=== PATIENT | male | born 1965 | race Caucasian/White ===

== ENCOUNTER 2020-12-20 09:03 | Inpatient (IN) | payer SELFPAY ==
[~2020-12-20] VITALS: Ht 172.7 cm; Wt 99.3 kg
--- NOTE | 2020-12-20 09:20 | ED.ADGEN ---
Past Medical History Past Medical History: No Pertinent History, CHF Past Surgical History: Other Additional Past Surgical Histo: left wrist surgery Smoking Status: Current Every Day Smoker Alcohol Use: None Drug Use: None General Adult EDM: Chief Complaint: CHEST PAIN-CARDIAC NATURE HPI: HPI: Patient is a 55-year-old male who arrives ambulatory to the emergency department complaining of progressive shortness of air over the past week. Patient reports he was diagnosed with congestive heart failure in September of this year at [facility]. Patient states since that time he is dealt with intermittent difficulty breathing. Patient states over the past week however he is noticed that when he sleeps he wakes up gasping for air as well as experiencing diaphoresis. Patient also states that he has heaviness in his chest all the time. Despite this he denies any history of fever. He further denies any coughing when he is awake and states he does not really have chest pain. He further denies any known sick contacts and states he is not been vaccinated against the coronavirus. He is awake, alert and nontoxic-appearing. Review of Systems: Review of Systems: Constitutional: Denies fever or chills. [] Eyes: Denies change in visual acuity. [] HENT: Denies nasal congestion or sore throat. [] Respiratory: Reports cough or shortness of breath. [] Cardiovascular: Reports chest heaviness and shortness of air. Denies chest pa in or edema. [] GI: Denies abdominal pain, nausea, vomiting, bloody stools or diarrhea. [] : Denies dysuria. [] Musculoskeletal: Denies back pain or joint pain. [] Integument: Denies rash. [] Neurologic: Denies headache, focal weakness or sensory changes. [] Endocrine: Denies polyuria or polydipsia. [] Lymphatic: Denies swollen glands. [] Psychiatric: Denies depression or anxiety. [] Current Medications: Current Medications Medications (Trade) Dose Ordered Sig/Parris Start Time Stop Time Status Last Admin Dose Admin Acetaminophen (Tylenol) 650 mg PRN Q4HRS PRN 12/20/20 11:15 12/21/20 11:14 Ondansetron HCl (Zofran) 4 mg PRN Q8HRS PRN 12/20/20 11:15 12/21/20 11:14 Allergies: Allergies: Allergies Coded Allergies Type Severity Reaction Last Updated Verified No Known Drug Allergies 11/11/14 No Physical Exam: PE: Constitutional: Well developed, well nourished, no acute distress, non-toxic appearance. [] HENT: Normocephalic, atraumatic, bilateral external ears normal, oropharynx mo ist, no oral exudates, nose normal. [] Eyes: PERRLA, EOMI, conjunctiva normal, no discharge. [] Neck: Normal range of motion, no tenderness, supple, no stridor. [] Cardiovascular: Tachycardia. no murmur [] Lungs & Thorax: Diminished breath sounds bilaterally. [] Abdomen: Bowel sounds normal, soft, no tenderness, no masses, no pulsatile masses. [] Skin: Warm, dry, no erythema, no rash. [] Back: No tenderness, no CVA tenderness. [] Extremities: Trace edema of the lower extremities. No tenderness, no cyanosis, no clubbing, ROM intact. [] Neurologic: Alert and oriented X 3, normal motor function, normal sensory function, no focal deficits noted. [] Psychologic: Affect normal, judgement normal, mood normal. [] Current Patient Data: Labs: Laboratory Tests Test 12/20/20 09:34 12/20/20 10:20 SARS-CoV-2 RNA (ISABEL) Negative (Negative) White Blood Count 12.3 x10^3/uL (4.0-11.0) H Red Blood Count 5.39 x10^6/uL (4.30-5.70) Hemoglobin 14.8 g/dL (13.0-17.5) Hematocrit 45.0 % (39.0-53.0) Mean Corpuscular Volume 83 fL (79-100) Mean Corpuscular Hemoglobin 28 pg (25-35) Mean Corpuscular Hemoglobin Concent 33 g/dL (31-37) Red Cell Distribution Width 15.9 % (11.5-14.5) H Platelet Count 253 x10^3/uL (140-400) Neutrophils (%) (Auto) 75 % (31-73) H Lymphocytes (%) (Auto) 14 % (24-48) L Monocytes (%) (Auto) 9 % (0-9) Eosinophils (%) (Auto) 2 % (0-3) Basophils (%) (Auto) 1 % (0-3) Neutrophils # (Auto) 9.2 x10^3/uL (1.8-7.7) H Lymphocytes # (Auto) 1.7 x10^3/uL (1.0-4.8) Monocytes # (Auto) 1.1 x10^3/uL (0.0-1.1) Eosinophils # (Auto) 0.2 x10^3/uL (0.0-0.7) Basophils # (Auto) 0.1 x10^3/uL (0.0-0.2) Sodium Level 140 mmol/L (136-145) Potassium Level 4.6 mmol/L (3.5-5.1) Chloride Level 105 mmol/L (98-107) Carbon Dioxide Level 30 mmol/L (21-32) Anion Gap 5 (6-14) L Blood Urea Nitrogen 18 mg/dL (8-26) Creatinine 1.1 mg/dL (0.7-1.3) Estimated GFR (Cockcroft-Gault) 69.0 BUN/Creatinine Ratio 16 (6-20) Glucose Level 119 mg/dL (70-99) H Calcium Level 8.8 mg/dL (8.5-10.1) Total Bilirubin 0.8 mg/dL (0.2-1.0) Aspartate Amino Transferase (AST) 27 U/L (15-37) Alanine Aminotransferase (ALT) 44 U/L (16-63) Alkaline Phosphatase 96 U/L (46-116) Troponin I Quantitative 0.098 ng/mL (0.000-0.055) PM-Jra-P-Type Natriuretic Peptide 5833 pg/mL (0-124) H Total Protein 7.6 g/dL (6.4-8.2) Albumin 3.1 g/dL (3.4-5.0) L Albumin/Globulin Ratio 0.7 (1.0-1.7) L Laboratory Tests 12/20/20 10:20 Laboratory Tests 12/20/20 10:20 Vital Signs: Vital Signs Date Time Temp Pulse Resp B/P (MAP) Pulse Ox O2 Delivery O2 Flow Rate FiO2 12/20/20 09:09 97.8 104 24 173/122 (120) 98 Room Air 97.8 EKG: EKG: [] EKG was obtained at 9:33 AM and revealed a sinus tachycardia ventricular 106 bpm. There is left axis deviation present as well as a left anterior fascicular block. There is morphology consistent with what appears to be left ventricular hypertrophy as well. There are no acute ST/T wave changes to denote ischemia. Heart Score: C/O Chest Pain: Yes HEART Score for Chest Pain: HEART Score for Chest Pain Response (Comments) Value History Moderately Suspicious 1 Age >45 - < 65 1 Risk Factors 1 or 2 Risk Factors 1 Total 3 Risk Factors: Risk Factors: DM, Current or recent (<one month) smoker, HTN, HLP, family history of CAD, obesity. Risk Scores: Score 0 - 3: 2.5% MACE over next 6 weeks - Discharge Home Score 4 - 6: 20.3% MACE over next 6 weeks - Admit for Clinical Observation Score 7 - 10: 72.7% MACE over next 6 weeks - Early Invasive Strategies Radiology/Procedures: Radiology/Procedures: [] Impression: [facility] [address] [place], [place] [id number] IMAGING REPORT Signed PATIENT: ROOSEVELT BARBER ACCOUNT: [id number] : 1965 LOCATION: ER AGE: 55 SEX: M EXAM STATUS: REG ER ORD. PHYSICIAN: MULU MORELOS DO REASON: Short of air PROCEDURE: PORTABLE CHEST 1V XR CHEST 1V INDICATION: Short of air / Spl. Instructions: / History: . COMPARISON STUDY: None. FINDINGS: Lungs: Normal lung volume. Bilateral perihilar opacities. Indistinct central vasculature. Pleura: No pleural effusion or pneumothorax. Heart and Mediastinum: Cardiomegaly. The great vessels of the thorax are normal. IMPRESSION: Bilateral perihilar opacities, likely interstitial edema or infection. Electronically signed by: Marcia Elizabeth MD (12/20/2020 9:59 AM) [id number] DICTATED and SIGNED BY: MARCIA ELIZABETH MD DATE: 12/20/20 [id number] Course & Med Decision Making: Course & Med Decision Making Pertinent Labs and Imaging studies reviewed. (See chart for details) [] Dragon Disclaimer: Dragon Disclaimer: This electronic medical record was generated, in whole or in part, using a voice recognition dictation system. Departure Departure Impression: Primary Impression: Congestive heart failure Additional Impressions: Elevated troponin Methamphetamine use Abscess of left forearm Person under investigation for COVID-19 Disposition: ADMITTED INPATIENT Admitting Physician: JOSE Condition: STABLE Referrals: NO PCP (PCP) Problem Qualifiers MULU MORELOS DO Dec 20, 2020 09:20
--- NOTE | 2020-12-20 10:02 | RAD ---
XR CHEST 1V INDICATION: Short of air / Spl. Instructions: / History: . COMPARISON STUDY: None. FINDINGS: Lungs: Normal lung volume. Bilateral perihilar opacities. Indistinct central vasculature. Pleura: No pleural effusion or pneumothorax. Heart and Mediastinum: Cardiomegaly. The great vessels of the thorax are normal. IMPRESSION: Bilateral perihilar opacities, likely interstitial edema or infection. Electronically signed by: Isreal Elizabeth MD (12/20/2020 9:59 AM) [id number]
[2020-12-20 10:27] LABS: BASO # 0.1 x10^3/uL (0.0-0.2); BASO % 1 % (0-3); EOS # 0.2 x10^3/uL (0.0-0.7); EOS % 2 % (0-3); HEMOGLOBIN 14.8 g/dL (13.0-17.5); LYMPH # 1.7 x10^3/uL (1.0-4.8); LYMPH % 14 % (24-48); MEAN CORPUSCULAR HEMOGLOBIN 28 pg (25-35); MEAN CORPUSCULAR HGB CONC 33 g/dL (31-37); MEAN CORPUSCULAR VOLUME 83 fL (79-100); MONO # 1.1 x10^3/uL (0.0-1.1); MONO % 9 % (0-9); NEUT # 9.2 x10^3/uL (1.8-7.7); NEUT % 75 % (31-73); PLATELET COUNT 253 x10^3/uL (140-400); RED BLOOD COUNT 5.39 x10^6/uL (4.30-5.70); RED CELL DISTRIBUTION WIDTH 15.9 % (11.5-14.5); WHITE BLOOD COUNT 12.3 x10^3/uL (4.0-11.0)
[2020-12-20 10:44] LABS: CALCIUM 8.8 mg/dL (8.5-10.1); CREATININE 1.1 mg/dL (0.7-1.3); POTASSIUM 4.6 mmol/L (3.5-5.1)
[2020-12-20 10:48] LABS: ALBUMIN 3.1 g/dL (3.4-5.0); ALBUMIN/GLOBULIN RATIO 0.7 (1.0-1.7); TOTAL BILIRUBIN 0.8 mg/dL (0.2-1.0); TOTAL PROTEIN 7.6 g/dL (6.4-8.2)
[2020-12-20] MEDS ORDERED: ONDANSETRON PF 4 MG/2 ML VIAL. IV PRN (11:15)
[2020-12-20] MEDS ORDERED: ACETAMINOPHEN 325 MG TABLET. PO PRN (11:15)
[2020-12-20] MEDS: MORPHINE SULFATE 4 MG/ML INJ. IVP PRN ×3 (11:59→23:28)
[2020-12-20] MEDS ORDERED: LIDOCAINE 1% Multi-Dose 20 ML VIAL. INJ ONE (12:00)
[2020-12-20] MEDS ORDERED: VANCOMYCIN 1.75 GM in IV NORMAL SALINE 500ML BAG 500 ML IV ONE (13:00)
[2020-12-20] MEDS ORDERED: PIPERACILLIN/TAZOBACTAM 3.375 GM in IV NORMAL SALINE 50ML 50 ML IV ONE (13:00)
[2020-12-20] MEDS ORDERED: PIP/TAZO PER PHARMACY MC PRN (13:00)
--- NOTE | 2020-12-20 13:10 | HP ---
ADMIT DATE: 12/20/2020 CHIEF COMPLAINT: Left arm abscess, methamphetamine abuse, volume overload, shortness of breath and swelling. HISTORY OF PRESENT ILLNESS: The patient is a pleasant 55-year-old male who continues to inject methamphetamine. He has a large abscess on his left arm. He also was volume overloaded with acute on chronic systolic and diastolic heart failure. His BNP level is 6000. His troponin is elevated at 0.098. He also has a white count of 12. Basically, I discussed the case with ER physician. We are going to admit the patient and consult Cardiology and get him diuresed and give him some IV antibiotics and get the left arm abscess drained. PAST MEDICAL HISTORY: Continued methamphetamine abuse, CHF, noncompliance, left wrist surgery, tobacco abuse. ALLERGIES: None. FAMILY HISTORY: Diabetes. SOCIAL HISTORY: He does not drink. He smokes and takes drugs. He injects himself with methamphetamine in his left arm. MEDICATIONS: Reviewed, please refer to the MRAD. REVIEW OF SYSTEMS: GENERAL: No history of weight change, weakness or fevers. SKIN: No bruising, hair changes or rashes. EYES: No blurred, double or loss of vision. NOSE AND THROAT: No history of nosebleeds, hoarseness or sore throat. HEART: No history of palpitations, chest pain or shortness of breath on exertion. LUNGS: He complains of shortness of breath. GASTROINTESTINAL: Denies changes in appetite, nausea, vomiting, diarrhea or constipation. GENITOURINARY: No history of frequency, urgency, hesitancy or nocturia. NEUROLOGIC: Denies history of numbness, tingling, tremor or weakness. PSYCHIATRIC: No history of panic, anxiety or depression. ENDOCRINE: No history of heat or cold intolerance, polyuria or polydipsia. EXTREMITIES: He complains of left arm abscess. LABORATORY DATA: Hematology is normal. White count is 12. Chest x-ray shows vascular congestion. BNP level 6000. ASSESSMENT AND PLAN: Acute on chronic systolic and diastolic heart failure, left arm abscess, methamphetamine abuse, leukocytosis, noncompliance and elevated troponin. The patient will be admitted. We will start IV Lasix, start IV antibiotics. The ER physician is going to try to drain the abscess. Home meds, deep venous thrombosis prophylaxis. Full code. 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 Cardiac monitoring, serial enzymes, serial EKGs. CRITICAL CARE TIME: [address]: Jose TID: [id number]
--- NOTE | 2020-12-20 13:52 | PDOC2 ---
CARDIAC CONSULT DATE OF CONSULT Date of Consult DATE: 12/20/20 TIME: 13:13 REASON FOR CONSULT Reason for Consult: heart failure, elevated troponin REFERRING PHYSICIAN Referring Physician: Jian SOURCE Source: Chart review, Patient HISTORY OF PRESENT ILLNESS HISTORY OF PRESENT ILLNESS This is a 55 yo male admitted for complains of shortness of breath. He has been having chest heaviness but no palpitations nausea or vomiting. No fever or chills. His SOA has been ongoing for about 2 weeks. He was at [facility] in September and diagnosed with NICM, CHF and was positive for meth at that time. He was taking his medications until he ran out early November. He said he just could not afford it. He smokes tobacco/cigar and used methamphetamines a week ago. No prior exposure to covid-19 and has not had the vaccine. He lives alone in an apartment. No leg swelling. PAST MEDICAL HISTORY Cardiovascular: CHF, HTN, Hyperlipidemia, Other (NICM deemed toxic related with associated use meth; possible angioedema due to ACEi) Pulmonary: COPD CENTRAL NERVOUS SYSTEM: Other (No pertinent history) GI: No pertinent hx Heme/Onc: No pertinent hx Hepatobiliary: Cholelithiasis Musculoskeletal: Osteoarthritis, Other (traumatic right knee injury with hemarthroses with aspiration) Rheumatologic: Gout Infectious disease: No pertinent hx ENT: No pertinent hx Renal/: Acute renal failure Endocrine: No pertinent hx Dermatology: No pertinent hx PAST SURGICAL HISTORY Past Surgical History: Arthroscopy (right knee ACL repair), Cholecystectomy, Other (hand surgery) SOCIAL HISTORY Smoke: <1 pack per day ALCOHOL: occassional Drugs: Crystal meth Lives: Alone CURRENT MEDICATIONS CURRENT MEDICATIONS Current Medications Medications (Trade) Dose Ordered Sig/Parris Route PRN Reason Start Time Stop Time Status Last Admin Dose Admin Ondansetron HCl (Zofran) 4 mg PRN Q8HRS PRN IV NAUSEA/VOMITING 12/20/20 11:15 12/21/20 11:14 12/20/20 11:59 Acetaminophen (Tylenol) 650 mg PRN Q4HRS PRN PO FEVER > 100.3'F 12/20/20 11:15 12/21/20 11:14 12/20/20 12:00 Morphine Sulfate (Morphine Sulfate) 4 mg PRN Q2HR PRN IVP PAIN 12/20/20 11:45 12/21/20 11:44 12/20/20 11:59 Lidocaine HCl (Lidocaine 1% 20ml Vial) 20 ml 1X ONCE INJ 12/20/20 12:00 12/20/20 12:01 DC 12/20/20 12:00 ALLERGIES ALLERGIES: Coded Allergies: No Known Drug Allergies (Unverified , 11/11/14) PHYSICAL EXAM General: Alert, Oriented X3, Cooperative, No acute distress HEENT: Atraumatic, Mucous membr. moist/pink Lungs: Other (diminished bases) Heart: Regular rate (SR), Normal S1, Normal S2, Other (S4; 2/6 systolic murmur to LLS border) Extremities: No cyanosis, No edema Skin: No rashes, Other (left arm boil- post I & D) Neuro: Normal speech, Sensation intact Psych/Mental Status: Mental status NL, Mood NL MUSCULOSKELETAL: Osteoarthritic changes both hands VITALS/I&O VITALS/I&O: Vital Signs Date Time Temp Pulse Resp B/P (MAP) Pulse Ox O2 Delivery O2 Flow Rate FiO2 12/20/20 11:57 104 192/111 (138) 96 Room Air 12/20/20 09:09 97.8 24 97.8 LABS Lab: Laboratory Tests Test 12/20/20 09:34 12/20/20 10:20 SARS-CoV-2 RNA (ISABEL) Negative (Negative) White Blood Count 12.3 x10^3/uL (4.0-11.0) H Red Blood Count 5.39 x10^6/uL (4.30-5.70) Hemoglobin 14.8 g/dL (13.0-17.5) Hematocrit 45.0 % (39.0-53.0) Mean Corpuscular Volume 83 fL (79-100) Mean Corpuscular Hemoglobin 28 pg (25-35) Mean Corpuscular Hemoglobin Concent 33 g/dL (31-37) Red Cell Distribution Width 15.9 % (11.5-14.5) H Platelet Count 253 x10^3/uL (140-400) Neutrophils (%) (Auto) 75 % (31-73) H Lymphocytes (%) (Auto) 14 % (24-48) L Monocytes (%) (Auto) 9 % (0-9) Eosinophils (%) (Auto) 2 % (0-3) Basophils (%) (Auto) 1 % (0-3) Neutrophils # (Auto) 9.2 x10^3/uL (1.8-7.7) H Lymphocytes # (Auto) 1.7 x10^3/uL (1.0-4.8) Monocytes # (Auto) 1.1 x10^3/uL (0.0-1.1) Eosinophils # (Auto) 0.2 x10^3/uL (0.0-0.7) Basophils # (Auto) 0.1 x10^3/uL (0.0-0.2) Sodium Level 140 mmol/L (136-145) Potassium Level 4.6 mmol/L (3.5-5.1) Chloride Level 105 mmol/L (98-107) Carbon Dioxide Level 30 mmol/L (21-32) Anion Gap 5 (6-14) L Blood Urea Nitrogen 18 mg/dL (8-26) Creatinine 1.1 mg/dL (0.7-1.3) Estimated GFR (Cockcroft-Gault) 69.0 BUN/Creatinine Ratio 16 (6-20) Glucose Level 119 mg/dL (70-99) H Calcium Level 8.8 mg/dL (8.5-10.1) Total Bilirubin 0.8 mg/dL (0.2-1.0) Aspartate Amino Transferase (AST) 27 U/L (15-37) Alanine Aminotransferase (ALT) 44 U/L (16-63) Alkaline Phosphatase 96 U/L (46-116) Troponin I Quantitative 0.098 ng/mL (0.000-0.055) HX-Oxp-Y-Type Natriuretic Peptide 5833 pg/mL (0-124) H Total Protein 7.6 g/dL (6.4-8.2) Albumin 3.1 g/dL (3.4-5.0) L Albumin/Globulin Ratio 0.7 (1.0-1.7) L Laboratory Tests 12/20/20 10:20 Laboratory Tests 12/20/20 10:20 ECHOCARDIOGRAM ECHOCARDIOGRAM Echocardiogram 09/29/2020: [facility] * LVEF=25%. * Mildly dilated left ventricle with severely impaired systolic function. LVIDD 5.39 cm, LVIDS 4.68 cm. No LVH. * No definite LV filling defect on the echo contrast images. * Mildly dilated right ventricle with reduced function. * Normal sized atria. * Non-specific mitral valve thickening with mild-moderate regurgitation. No stenosis. * No pericardial effusion. * Estimated pulmonary artery systolic pressure is 37 mmHg. STRESS TEST STRESS TEST SUMMARY/OPINION: [facility] 09/29/2020 This study is normal from a scintigraphic standpoint as there are no definite fixed or reversible perfusion abnormalities. The left ventricular cavity size is mildly dilated without transient ischemic dilatation. The gated portion of the study is notable for severe diffuse left ventricular hypokinesis. The calculated LVEF is 29%. There are no other high risk adverse prognostic features present. These findings would be compatible with a nonischemic myocardiopathic process. There are no prior studies available for direct comparison. In aggregate the current study is high risk in regards to predicted annual cardiovascular mortality rate. ASSESSMENT/PLAN ASSESSMENT/PLAN 1. Acute on chronic systolic CHF 2. HTN urgency 3. Mild troponin elevation: EKG SR with LAFB and LVH. No acute EKG changes. Demand mediated type 2 4. Obesity 5. Hx of methamphetamine use: last use of meth a week ago 6. NICM: suspect associated with substance abuse. prior EF at 25% 7. AECOPD with tobaccu use 8. PUI 9. Obesity Recommendations 1. Restart ASA/Statin. 2. Restart hydralazine/imdur, coreg and aldactone. Lasix therapy 3. UDS 4. Lifestyle modification 5. Discussed compliance MARIANO DIALLO ASSISTANT FOOD SERVICE DIRECTOR Dec 20, 2020 13:52
[2020-12-20 14:18] LABS: CHOLESTEROL/HDL RATIO 4.4
[2020-12-20] MEDS ORDERED: FUROSEMIDE 40 MG/4 ML VIAL. IVP ONE (14:30)
[2020-12-20 14:35] VITALS: BP 153/90
[2020-12-20] MEDS: VANCOMYCIN PER PHARMACY MC PRN (16:49)
--- NOTE | 2020-12-20 16:49 | NUR ---
Pharmacy Vancomycin Dosing Note S:Consulted to monitor and dose vancomycin started 12/20/20. O:ROOSEVELT BARBER is a 55 year old M with pneumonia. Height: 5 feet, 8 inches Weight: 104.9 kg Dosing Weight: Actual Other Antibiotics: ZOSYN 3.375G IV Q6HRS LABS: Last BUN: 18 Last Creatinine: 1.1 Creatinine Clearance: 89 mL/min Last WBC: 12.3 Last Procalcitonin: Tmax (past 24 hours): 98.6 Microbiology: N/A A: Patient requires vancomycin for pneumonia, goal trough 15-20 mcg/ml. His Scr is 1.1 with an est CrCl of 89 ml/min. Initiate the following: P: 1. Initiate Vancomycin 1750 mg IV x 1 dose, then 1500 mg IV q12h 2. Follow up Trough level on 12/22/20 at 0230 3. Pharmacy will continue to monitor, follow and adjust therapy as needed. JUAN PABLO GUTIERREZ [facility], 12/20/20 1040
[2020-12-20] MEDS: CARVEDILOL 3.125 MG TABLET. PO SCH (17:07)
[2020-12-20 18:18] LABS: BARBITURATES NEG (NEG); BENZODIAZEPINES NEG (NEG); CANNABINOIDS NEG (NEG); COCAINE NEG (NEG); METHADONE NEG (NEG); OPIATES POS (NEG); PHENCYCLIDINE NEG (NEG)
[2020-12-20 18:22] LABS: AMPHETAMINE/METHAMPHETAMINE POS (NEG)
[2020-12-20 19:00] VITALS: BP 162/95
[2020-12-20] MEDS: LACTOBACILLUS RHAMNOSUS GG 1 CAPSULE. PO SCH (19:50)
[2020-12-20] MEDS: PIPERACILLIN/TAZOBACTAM 3.375 GM in IV NORMAL SALINE 50ML 50 ML IV SCH (19:51)
[2020-12-20] MEDS: ATORVASTATIN CALCIUM 40 MG TABLET. PO SCH (19:51)
[2020-12-20 23:00] VITALS: BP 145/92
[2020-12-21] MEDS: VANCOMYCIN 1.5 GM in IV NORMAL SALINE 500ML BAG 500 ML IV SCH ×2 (02:23→14:50)
[2020-12-21] MEDS: MORPHINE SULFATE 4 MG/ML INJ. IVP PRN ×4 (02:46→21:06)
[2020-12-21 02:54] VITALS: BP 131/97
[2020-12-21] MEDS: PIPERACILLIN/TAZOBACTAM 3.375 GM in IV NORMAL SALINE 50ML 50 ML IV SCH ×3 (05:35→20:59)
[2020-12-21 07:00] VITALS: BP 149/102
[2020-12-21] MEDS: ASPIRIN ENTERIC COATED 81 MG TABLET.DR. PO SCH (08:50)
[2020-12-21] MEDS: ISOSORBIDE MONONITRATE ER 30 MG TAB.ER.24H PO SCH (08:50)
[2020-12-21] MEDS: CARVEDILOL 3.125 MG TABLET. PO SCH (08:50)
[2020-12-21] MEDS: SPIRONOLACTONE 25 MG TABLET PO SCH (08:52)
[2020-12-21] MEDS: LACTOBACILLUS RHAMNOSUS GG 1 CAPSULE. PO SCH ×2 (08:53→20:58)
--- NOTE | 2020-12-21 08:56 | PDOC ---
CARDIO Progress Notes Date and Time Date of Service 12/21/2020 Time of Evaluation 1010 Subjective Subjective: No Chest Pain, No Palpitations, Other (SOA better) Vitals Vitals Vital Signs Date Time Temp Pulse Resp B/P (MAP) Pulse Ox O2 Delivery O2 Flow Rate FiO2 12/21/20 07:00 97.6 102 20 149/102 (118) 97 Nasal Cannula 2.0 97.6 Weight Weight [ ] Input and Output Intake and Output Intake and Output 12/21/20 07:00 Intake Total 1100 ml Output Total 1100 ml Balance 0 ml Intake Oral 1100 ml Output Urine Total 1100 ml Laboratory Labs Laboratory Tests Test 12/20/20 09:34 12/20/20 10:20 12/20/20 14:30 12/20/20 17:50 SARS-CoV-2 RNA (ISABEL) Negative (Negative) White Blood Count 12.3 x10^3/uL (4.0-11.0) Red Blood Count 5.39 x10^6/uL (4.30-5.70) Hemoglobin 14.8 g/dL (13.0-17.5) Hematocrit 45.0 % (39.0-53.0) Mean Corpuscular Volume 83 fL (79-100) Mean Corpuscular Hemoglobin 28 pg (25-35) Mean Corpuscular Hemoglobin Concent 33 g/dL (31-37) Red Cell Distribution Width 15.9 % (11.5-14.5) Platelet Count 253 x10^3/uL (140-400) Neutrophils (%) (Auto) 75 % (31-73) Lymphocytes (%) (Auto) 14 % (24-48) Monocytes (%) (Auto) 9 % (0-9) Eosinophils (%) (Auto) 2 % (0-3) Basophils (%) (Auto) 1 % (0-3) Neutrophils # (Auto) 9.2 x10^3/uL (1.8-7.7) Lymphocytes # (Auto) 1.7 x10^3/uL (1.0-4.8) Monocytes # (Auto) 1.1 x10^3/uL (0.0-1.1) Eosinophils # (Auto) 0.2 x10^3/uL (0.0-0.7) Basophils # (Auto) 0.1 x10^3/uL (0.0-0.2) Sodium Level 140 mmol/L (136-145) Potassium Level 4.6 mmol/L (3.5-5.1) Chloride Level 105 mmol/L (98-107) Carbon Dioxide Level 30 mmol/L (21-32) Anion Gap 5 (6-14) Blood Urea Nitrogen 18 mg/dL (8-26) Creatinine 1.1 mg/dL (0.7-1.3) Estimated GFR (Cockcroft-Gault) 69.0 BUN/Creatinine Ratio 16 (6-20) Glucose Level 119 mg/dL (70-99) Calcium Level 8.8 mg/dL (8.5-10.1) Total Bilirubin 0.8 mg/dL (0.2-1.0) Aspartate Amino Transf (AST/SGOT) 27 U/L (15-37) Alanine Aminotransferase (ALT/SGPT) 44 U/L (16-63) Alkaline Phosphatase 96 U/L (46-116) Troponin I Quantitative 0.098 ng/mL (0.000-0.055) 0.099 ng/mL (0.000-0.055) BA-Nxw-W-Type Natriuretic Peptide 5833 pg/mL (0-124) Total Protein 7.6 g/dL (6.4-8.2) Albumin 3.1 g/dL (3.4-5.0) Albumin/Globulin Ratio 0.7 (1.0-1.7) Triglycerides Level 114 mg/dL (0-150) Cholesterol Level 158 mg/dL (0-200) LDL Cholesterol, Calculated 99 mg/dL (0-100) VLDL Cholesterol, Calculated 23 mg/dL (0-40) Non-HDL Cholesterol Calculated 122 mg/dL (0-129) HDL Cholesterol 36 mg/dL (40-60) Cholesterol/HDL Ratio 4.4 Thyroid Stimulating Hormone (TSH) 3.649 uIU/mL (0.358-3.74) Urine Opiates Screen Pos (NEG) Urine Methadone Screen Neg (NEG) Urine Barbiturates Neg (NEG) Urine Phencyclidine Screen Neg (NEG) Urine Amphetamine/Methamphetamine Pos (NEG) Urine Benzodiazepines Screen Neg (NEG) Urine Cocaine Screen Neg (NEG) Urine Cannabinoids Screen Neg (NEG) Urine Ethyl Alcohol Neg (NEG) Test 12/21/20 07:45 Creatinine 1.3 mg/dL (0.7-1.3) Estimated GFR (Cockcroft-Gault) 56.9 Physical Exam HEENT: Neck Supple W Full Motion Chest: Symmetric LUNGS: Other (diminished ) Heart: RRR (SR/ST) Abdomen: Soft N/T, Other (truncal obesity) Extremities: No Calf Tenderness Neurology: alert, oriented, follow commands Assessment Assessment 1. Acute on chronic systolic CHF: improving 2. HTN urgency: better controlled 3. Mild troponin elevation: EKG SR with LAFB and LVH. No acute EKG changes. Demand mediated type 2 4. Obesity 5. Substance abue: UDS+ for opiates and methamphetamines 6. NICM: suspect associated with substance abuse. prior EF at 25% 7. AECOPD with tobacco use per PCP 8. PUI: ISABEL test neg 9. Obesity Recommendations 1. Continue ASA/Statin. 2. Continue hydralazine/imdur, coreg and aldactone. Lasix therapy 3. Lifestyle modification. CHF education 4. Discussed compliance. anticipated DC tomorrow. Follow up with cardiology Justicifation of Admission Dx: Justifications for Admission: Justification of Admission Dx: Yes MARIANO DIALLO AREA DIRECTOR OF HOME HEALTH SALES Dec 21, 2020 08:56
[2020-12-21 09:03] LABS: CALCIUM 8.4 mg/dL (8.5-10.1); CREATININE 1.3 mg/dL (0.7-1.3); GFR 56.9; MAGNESIUM 2.2 mg/dL (1.8-2.4); POTASSIUM 4.7 mmol/L (3.5-5.1)
[2020-12-21] MEDS ORDERED: FUROSEMIDE 40 MG/4 ML VIAL. IVP ONE (09:30)
--- NOTE | 2020-12-21 10:09 | NUR ---
SS following for discharge planning. SS reviewed pt chart and discussed with pt RN. Pt is currently requiring oxygen at two liters nasal canula. COVID19 negative. Cardiology following. EF 25%. Pt on IV Vancomycin and IV Zosyn. Pt positive for Methamphetamines and THC. PAT team referral made for assessment and recommendations. Gordo from PAT team coming to meet with pt. Pt reporting that he has difficulties affording medications. Pt has resources for [facility] and has accessed [facility] for medications as well. Self pay. Med Assist following to assess for Medicaid and Disability. SS will continue to follow for discharge planning .
--- NOTE | 2020-12-21 10:53 | PDOC ---
[facility] [facility] PROGRESS NOTE Date of Service DOS: DATE: 12/21/20 TIME: 10:45 Chief Complaint Chief Complaint Left arm abscess, methamphetamine abuse, volume overload, shortness of breath and swelling. History of Present Illness History of Present Illness The patient is a pleasant 55-year-old male who continues to inject methamphetamine. He has a large abscess on his left arm. He also was volume overloaded with acute on chronic systolic and diastolic heart failure. His BNP level is 6000. His troponin is elevated at 0.098. He also has a white count of 12. Basically, I discussed the case with ER physician. We are going to admit the patient and consult Cardiology and get him diuresed and give him some IV antibiotics and get the left arm abscess drained. 12/21/2020 Pt seen and examined while in bed D/W RN Chart review pt felt arm was doing better after abscess was drained Vitals/I&O Vitals/I&O: Vital Signs Date Time Temp Pulse Resp B/P (MAP) Pulse Ox O2 Delivery O2 Flow Rate FiO2 12/21/20 08:58 Nasal Cannula 2.0 12/21/20 08:51 102 149/102 12/21/20 07:00 97.6 20 97 97.6 I & O 12/20/20 12/20/20 12/21/20 14:59 22:59 06:59 Intake Total 700 ml 400 ml Output Total 1100 ml Balance -400 ml 400 ml Physical Exam General: Alert, Oriented X3, Cooperative, No acute distress Heart: Regular rate (SR), Normal S1, Normal S2, Other (S4; 2/6 systolic murmur to LLS border) Extremities: No cyanosis, No edema Skin: No rashes, Other (left arm boil- post I & D, CDI dressing in place) Labs Labs: Laboratory Tests Test 12/20/20 14:30 12/20/20 17:50 12/21/20 07:45 Troponin I Quantitative 0.099 ng/mL (0.000-0.055) Urine Opiates Screen Pos (NEG) Urine Methadone Screen Neg (NEG) Urine Barbiturates Neg (NEG) Urine Phencyclidine Screen Neg (NEG) Urine Amphetamine/Methamphetamine Pos (NEG) Urine Benzodiazepines Screen Neg (NEG) Urine Cocaine Screen Neg (NEG) Urine Cannabinoids Screen Neg (NEG) Urine Ethyl Alcohol Neg (NEG) Sodium Level 138 mmol/L (136-145) Potassium Level 4.7 mmol/L (3.5-5.1) Chloride Level 104 mmol/L (98-107) Carbon Dioxide Level 27 mmol/L (21-32) Anion Gap 7 (6-14) Blood Urea Nitrogen 21 mg/dL (8-26) Creatinine 1.3 mg/dL (0.7-1.3) Estimated GFR (Cockcroft-Gault) 56.9 Glucose Level 101 mg/dL (70-99) Calcium Level 8.4 mg/dL (8.5-10.1) Magnesium Level 2.2 mg/dL (1.8-2.4) Review of Systems Review of Systems: Denies STEWART or dizziness Bowel and Bladder continent denies fevers, aches or pain Assessment and Plan Assessmemt and Plan Assessment Left arm abscess, methamphetamine abuse, volume overload, shortness of breath and swelling. Plan Continue IV Zosyn and Vancomycin Cardiac monitoring serial enzymes Continue Diuresis Appreciate cardiac [employer] input on patient DVT prophylaxis Home meds Stable Full Code Probable discharge tomorrow Comment Review of Relevant I have reviewed the following items dany (where applicable) has been applied. Medications: Current Medications Medications (Trade) Dose Ordered Sig/Parris Route PRN Reason Start Time Stop Time Status Last Admin Dose Admin Ondansetron HCl (Zofran) 4 mg PRN Q8HRS PRN IV NAUSEA/VOMITING 12/20/20 11:15 12/21/20 11:14 12/20/20 11:59 Acetaminophen (Tylenol) 650 mg PRN Q4HRS PRN PO FEVER > 100.3'F 12/20/20 11:15 12/21/20 11:14 12/20/20 12:00 Morphine Sulfate (Morphine Sulfate) 4 mg PRN Q2HR PRN IVP PAIN 12/20/20 11:45 12/21/20 11:44 12/21/20 08:58 Lidocaine HCl (Lidocaine 1% 20ml Vial) 20 ml 1X ONCE INJ 12/20/20 12:00 12/20/20 12:01 DC 12/20/20 12:00 Vancomycin HCl (Vanco Per Pharmacy) 1 each PRN DAILY PRN MC SEE COMMENTS 12/20/20 13:00 12/20/20 16:49 Piperacillin Sod/ Tazobactam Sod 3.375 gm/Sodium Chloride 50 ml @ 100 mls/hr 1X ONCE IV 12/20/20 13:00 12/20/20 13:29 DC 12/20/20 13:39 Vancomycin HCl 1.75 gm/Sodium Chloride 500 ml @ 250 mls/hr 1X ONCE IV 12/20/20 13:00 12/20/20 14:59 DC 12/20/20 15:10 Furosemide (Lasix) 40 mg 1X ONCE IVP 12/20/20 14:30 12/20/20 14:31 DC 12/20/20 17:06 Aspirin (Ecotrin) 81 mg DAILYWBKFT PO 12/21/20 08:00 12/21/20 08:50 Atorvastatin Calcium (Lipitor) 40 mg QHS PO 12/20/20 21:00 12/20/20 19:51 Hydralazine HCl (Apresoline) 50 mg BID PO 12/20/20 21:00 12/21/20 08:51 Isosorbide Mononitrate (Imdur) 30 mg DAILY PO 12/21/20 09:00 12/21/20 08:50 Carvedilol (Coreg) 3.125 mg BIDWMEALS PO 12/20/20 17:00 12/21/20 08:50 Spironolactone (Aldactone) 25 mg DAILY PO 12/21/20 09:00 12/21/20 08:52 Piperacillin Sod/ Tazobactam Sod 3.375 gm/Sodium Chloride 50 ml @ 100 mls/hr Q6HRS IV 12/20/20 20:00 12/21/20 05:35 Vancomycin HCl 1.5 gm/Sodium Chloride 500 ml @ 250 mls/hr Q12H IV 12/21/20 03:00 12/21/20 02:23 Lactobacillus Rhamnosus (Culturelle) 1 cap BID PO 12/20/20 21:00 12/21/20 08:53 Justifications for Admission Other Justification MOISES PARISH III DO Dec 21, 2020 10:53
[2020-12-21 11:00] VITALS: BP 143/96
[2020-12-21] MEDS: VANCOMYCIN PER PHARMACY MC PRN (14:11)
[2020-12-21 15:00] VITALS: BP 121/60
[2020-12-21] MEDS: CARVEDILOL 6.25 MG TABLET. PO SCH (17:33)
[2020-12-21 19:00] VITALS: BP 119/71
[2020-12-21] MEDS: ATORVASTATIN CALCIUM 40 MG TABLET. PO SCH (20:58)
[2020-12-21 23:00] VITALS: BP 108/61
[2020-12-22] MEDS: PIPERACILLIN/TAZOBACTAM 3.375 GM in IV NORMAL SALINE 50ML 50 ML IV SCH ×2 (01:11→06:25)
[2020-12-22] MEDS: VANCOMYCIN 1.5 GM in IV NORMAL SALINE 500ML BAG 500 ML IV SCH (02:52)
[2020-12-22 03:00] VITALS: BP 136/79
[2020-12-22 03:28] LABS: CREATININE 1.5 mg/dL (0.7-1.3); GFR 48.2
[2020-12-22 03:36] LABS: VANC TR 20.2 mcg/mL (10.0-20.0)
[2020-12-22] MEDS: VANCOMYCIN PER PHARMACY MC PRN (05:22)
--- NOTE | 2020-12-22 05:22 | NUR ---
Pharmacy Vancomycin Dosing Note S:Consulted to monitor and dose vancomycin started 12/20/20. O:ROOSEVELT BARBER is a 55 year old M with Pneumonia arm abcess . Height: 5 feet, 8 inches Weight: 102.0 kg [place] Body Weight: 68.40 Adjusted Body Weight: 81.84 Dosing Weight: Actual Other Antibiotics: ZOSYN 3.375G IV Q6HRS LABS: Last BUN: 18 Last Creatinine: 1.5 Creatinine Clearance: 63 mL/min Last WBC: 12.3 Last Procalcitonin: Tmax (past 24 hours): 98.6 Microbiology: N/A I/O: 1100/1100 Drug Levels: Last Trough level: 20.2 on 12/22/20 at 0230 Last dose given 12/20/20 at 1500 Vancomycin Dosing: Loading Dose: 1750 mg x1 Dosing Weight: Actual Target Trough: 15-20 A: Based on: TROUGH AND SCR P: 1. Begin Vancomycin 1500 mg IV q18h 2. Follow up Trough level on 12/24/20 at 0830 3. Pharmacy will continue to monitor, follow and adjust therapy as needed. RUDDY ZARATE RPH, 12/22/20 0522 Signed: 12/22/20 at 0523 by RUDDY ZARATE RPH PHA
[2020-12-22 07:00] VITALS: BP 147/101
[2020-12-22] MEDS: LACTOBACILLUS RHAMNOSUS GG 1 CAPSULE. PO SCH ×2 (09:04→21:27)
[2020-12-22] MEDS: ASPIRIN ENTERIC COATED 81 MG TABLET.DR. PO SCH (09:04)
[2020-12-22] MEDS: SPIRONOLACTONE 25 MG TABLET PO SCH (09:05)
[2020-12-22] MEDS: CARVEDILOL 6.25 MG TABLET. PO SCH ×2 (09:05→18:38)
[2020-12-22] MEDS: ISOSORBIDE MONONITRATE ER 30 MG TAB.ER.24H PO SCH (09:06)
[2020-12-22] MEDS: FUROSEMIDE 20 MG TABLET PO SCH (09:06)
--- NOTE | 2020-12-22 10:30 | PDOC ---
[facility] [facility] PROGRESS NOTE Date of Service DOS: DATE: 12/22/20 TIME: 10:27 Chief Complaint Chief Complaint sepsis was POA, , skin cellulitis Left arm abscess, methamphetamine abuse, volume overload, shortness of breath and swelling. Acute on chronic systolic CHF: substance abuse and poor compliance, known EF of 25% htn urgency, TYpe 2 demand injury, not ischemic OBese, BMI 34 Substance abuse, opiates and methamphetamines History of Present Illness History of Present Illness 12/22, still looks rough, pain, weknes, dyspnea, try to DC later today change to PO abx, , no cx done, PO pain meds The patient is a pleasant 55-year-old male who continues to inject methamphetamine. He has a large abscess on his left arm. He also was volume overloaded with acute on chronic systolic and diastolic heart failure. His BNP level is 6000. His troponin is elevated at 0.098. He also has a white count of 12. Basically, I discussed the case with ER physician. We are going to admit the patient and consult Cardiology and get him diuresed and give him some IV antibiotics and get the left arm abscess drained. 12/21/2020 Pt seen and examined while in bed D/W RN Chart review pt felt arm was doing better after abscess was drained Vitals/I&O Vitals/I&O: Vital Signs Date Time Temp Pulse Resp B/P (MAP) Pulse Ox O2 Delivery O2 Flow Rate FiO2 12/22/20 09:06 93 147/101 12/22/20 07:00 97.5 21 98 Nasal Cannula 2.0 97.5 I & O 12/21/20 12/21/20 12/22/20 15:00 23:00 07:00 Intake Total 780 ml 360 ml 300 ml Output Total 1620 ml 350 ml Balance 780 ml -1260 ml -50 ml Physical Exam General: Alert, Oriented X3, Cooperative, No acute distress Heart: Regular rate (SR), Normal S1, Normal S2, Other (S4; 2/6 systolic murmur to LLS border) Extremities: No cyanosis, No edema Skin: No rashes, Other (left arm boil- post I & D, CDI dressing in place) Labs Labs: Laboratory Tests Test 12/22/20 02:30 Creatinine 1.5 mg/dL (0.7-1.3) Estimated GFR (Cockcroft-Gault) 48.2 Vancomycin Level Trough 20.2 mcg/mL (10.0-20.0) Vancomycin Last Dose Date 12/21/20 Vancomycin Last Dose Time 1500 Assessment and Plan Assessmemt and Plan Problems Medical Problems: (1) Abscess of left forearm Status: Acute (2) Congestive heart failure Status: Acute (3) Elevated troponin Status: Acute (4) Methamphetamine use Status: Acute (5) Person under investigation for COVID-19 Status: Acute Comment Review of Relevant I have reviewed the following items dany (where applicable) has been applied. Medications: Current Medications Medications (Trade) Dose Ordered Sig/Parris Route PRN Reason Start Time Stop Time Status Last Admin Dose Admin Vancomycin HCl (Vancomycin Trough Level) 1 each 1X ONCE MC 12/22/20 02:30 12/22/20 02:31 DC 12/22/20 02:30 Furosemide (Lasix) 20 mg DAILY PO 12/22/20 09:00 12/22/20 09:06 Carvedilol (Coreg) 6.25 mg BIDWMEALS PO 12/21/20 17:00 12/22/20 09:05 Morphine Sulfate (Morphine Sulfate) 4 mg PRN Q2HR PRN IVP PAIN 12/21/20 17:45 12/21/20 21:06 Justifications for Admission Other Justification HELEN GUERRERO MD Dec 22, 2020 10:30
[2020-12-22 11:00] VITALS: BP 94/57
[2020-12-22] MEDS: LINEZOLID 600 MG TABLET PO SCH ×2 (12:00→21:27)
[2020-12-22] MEDS: DOCUSATE SODIUM 100 MG CAPSULE. PO SCH (12:00)
[2020-12-22] MEDS: oxyCODONE/APAP 7.5/325 1 TAB TABLET PO PRN (12:00)
[2020-12-22 15:00] VITALS: BP 131/68
[2020-12-22 19:53] VITALS: BP 131/76
[2020-12-22] MEDS ORDERED: VANCOMYCIN 1.5 GM in IV NORMAL SALINE 500ML BAG 500 ML IV SCH (21:00)
[2020-12-22] MEDS: ATORVASTATIN CALCIUM 40 MG TABLET. PO SCH (21:27)
[2020-12-22 23:38] VITALS: BP 152/84
[2020-12-23 03:11] VITALS: BP 139/91
[2020-12-23 04:45] LABS: CREATININE 1.2 mg/dL (0.7-1.3); GFR 62.4
[2020-12-23 07:00] VITALS: BP 153/91
[2020-12-23] MEDS: DOCUSATE SODIUM 100 MG CAPSULE. PO SCH (08:27)
[2020-12-23] MEDS: LACTOBACILLUS RHAMNOSUS GG 1 CAPSULE. PO SCH (09:08)
[2020-12-23] MEDS: ASPIRIN ENTERIC COATED 81 MG TABLET.DR. PO SCH (09:09)
[2020-12-23] MEDS: FUROSEMIDE 20 MG TABLET PO SCH (09:09)
[2020-12-23] MEDS: SPIRONOLACTONE 25 MG TABLET PO SCH (09:09)
[2020-12-23] MEDS: ISOSORBIDE MONONITRATE ER 30 MG TAB.ER.24H PO SCH (09:09)
[2020-12-23] MEDS: CARVEDILOL 6.25 MG TABLET. PO SCH (09:10)
[2020-12-23] MEDS: LINEZOLID 600 MG TABLET PO SCH (09:10)
[2020-12-23] MEDS: oxyCODONE/APAP 7.5/325 1 TAB TABLET PO PRN (09:12)
[2020-12-23 11:11] VITALS: BP 118/56
[2020-12-23] MEDS ORDERED: ASPI-886 PO (11:19)
[2020-12-23] MEDS ORDERED: CARV6.2511 PO (11:19)
[2020-12-23] MEDS ORDERED: SPIR25TA PO (11:19)
[2020-12-23] MEDS ORDERED: FURO20TA3 PO (11:19)
[2020-12-23] MEDS ORDERED: AMOX1TAB61 PO (11:19)
[2020-12-23] MEDS ORDERED: ISOS30TA68 PO (11:19)
[2020-12-23] MEDS ORDERED: HYDR-2869 PO (11:19)
[2020-12-23] MEDS ORDERED: ATOR40TA59 PO (11:19)
--- NOTE | 2020-12-23 11:23 | PDOC3 ---
Discharge Summary Visit Information Date of Admission: Dec 20, 2020 Date of Discharge: Dec 23, 2020 Final Diagnosis sepsis was POA, , skin cellulitis Left arm abscess, recent methamphetamine abuse, opitated, hx of abuse acute volume overload, systolic CHF on admit acute renal failure, ATN, better at DC Acute on chronic systolic CHF: substance abuse and poor compliance, known EF of 25% htn urgency, TYpe 2 demand injury, not ischemic Obese, BMI 34 Problems Medical Problems: (1) Abscess of left forearm Status: Acute (2) Congestive heart failure Status: Acute (3) Elevated troponin Status: Acute (4) Methamphetamine use Status: Acute (5) Person under investigation for COVID-19 Status: Acute Brief Hospital Course Allergies Allergies Coded Allergies Type Severity Reaction Last Updated Verified No Known Drug Allergies 11/11/14 No Vital Signs Vital Signs Date Time Temp Pulse Resp B/P (MAP) Pulse Ox O2 Delivery O2 Flow Rate FiO2 12/23/20 11:11 98.4 88 18 118/56 (76) 93 Room Air 98.4 12/22/20 12:30 2.0 Lab Results Laboratory Tests Test 12/22/20 02:30 12/23/20 04:00 Creatinine 1.5 mg/dL (0.7-1.3) 1.2 mg/dL (0.7-1.3) Estimated GFR (Cockcroft-Gault) 48.2 62.4 Vancomycin Level Trough 20.2 mcg/mL (10.0-20.0) Vancomycin Last Dose Date 12/21/20 Vancomycin Last Dose Time 1500 Laboratory Tests Test 12/23/20 04:00 Creatinine 1.2 mg/dL (0.7-1.3) Estimated GFR (Cockcroft-Gault) 62.4 Brief Hospital Course Mr. Andino is a 55 old male with recet methamphetamine. He has a large abscess on his left arm likely from injectign.Admit with marked dyspena, swellign short of breath. mpted volume overloaded with acute on chronic systolic and diastolic heart failure. His BNP level is 6000. His troponin is elevated at 0.098. diuresed, BP managed, CV consulted home meds restartred on broad abx, here, no cx done on admit, he asked for med refills, he was out, mult home meds he was not taking, I ordered about 9 meds, Discharge Information Condition at Discharge: Improved Follow Up: Weeks Disposition/Orders: D/C to Home Scheduled Amoxicillin/Potassium Clav (Augmentin 875-125 Tablet) 1 Each Tablet, 1 TAB PO BID for skin infection for 7 Days, #14 Ref 0 Prescribed by: HELEN GUERRERO on 12/23/201118 Aspirin (Aspirin Ec) 81 Mg Tablet.dr, 81 MG PO DAILYWBKFT for cardiac, #100 Prescribed by: HELEN GUERRERO on 12/23/20 111 Atorvastatin Calcium (Atorvastatin Calcium) 40 Mg Tablet, 40 MG PO QHS for cardiac, #30 Ref 2 Prescribed by: HELEN GUERRERO on 12/23/20 111 Carvedilol (Carvedilol ) 6.25 Mg Tablet, 6.25 MG PO BIDWMEALS for cardiac, #60 Ref 2 Prescribed by: HELEN GUERRERO on 12/23/20 111 Furosemide (Furosemide) 20 Mg Tablet, 20 MG PO DAILY for CHF, #30 Ref 1 Prescribed by: HELEN GUERRERO on 12/23/20 111 Hydralazine Hcl (Hydralazine Hcl) 50 Mg Tablet, 25 MG PO BID for hypertension, #60 Ref 1 Prescribed by: HELEN GUERRERO on 12/23/20 111 Isosorbide Mononitrate (Isosorbide Mononitrate Er) 30 Mg Tab.er.24h, 30 MG PO DAILY for CHF, #30 Ref 1 Prescribed by: HELEN GUERRERO on 12/23/20 111 Spironolactone (Aldactone) 25 Mg Tablet, 25 MG PO DAILY for cardiac, #30 Ref 1 Prescribed by: HELEN GUERRERO on 12/23/20 111 Patient Instructions Patient Instructions > 30 min face to face x2 Justicifation of Admission Dx: Justifications for Admission: Justification of Admission Dx: Yes HELEN GUERRERO MD Dec 23, 2020 11:23
--- NOTE | 2020-12-23 15:34 | NUR ---
Discharge Note: ROOSEVELT BARBER[address] [place] [address] Discharge instructions and discharge home medications reviewed with Patient and a copy given. All questions have been answered and understanding verbalized. The following instructions and handouts were given: chest pain, substance abuse, meth abuse, HTN, heart failure. IV discontinued, no complications Patient discharged to home with self care. All belongings taken home with patient
== END 2020-12-23 15:00 | disposition home or self-care (01) | DRG 871 ==
LOC: ER 09:03 → ED HOLD 11:10 → 2 NORTH 14:00 → 6 SOUTH 12-21 12:36
PROVIDERS: ADMIT Internal Medicine; ATTEND Internal Medicine
PROC: 0X990ZZ Drainage of Left Upper Arm, Open Approach (ICD-10-PCS; principal; 2020-12-20)
DX: A41.9 Sepsis, unspecified organism (principal); I50.43 Acute on chronic combined systolic (congestive) and diastolic (congestive) heart failure; N17.0 Acute kidney failure with tubular necrosis; I42.8 Other cardiomyopathies; J44.1 Chronic obstructive pulmonary disease with (acute) exacerbation; L02.414 Cutaneous abscess of left upper limb; L03.114 Cellulitis of left upper limb; E66.9 Obesity, unspecified; E78.5 Hyperlipidemia, unspecified; F15.10 Other stimulant abuse, uncomplicated; F17.210 Nicotine dependence, cigarettes, uncomplicated; I11.0 Hypertensive heart disease with heart failure; I16.0 Hypertensive urgency; Z20.822 Contact with and (suspected) exposure to COVID-19; Z68.34 Body mass index [BMI] 34.0-34.9, adult; Z83.3 Family history of diabetes mellitus; Z91.19 Patient's noncompliance with other medical treatment and regimen; M10.9 Gout, unspecified; M19.90 Unspecified osteoarthritis, unspecified site; Z79.899 Other long term (current) drug therapy
CPT/HCPCS: 36415; 71045; 80048; 80053; 80061; 80202; 80307; 82565; 83735; 83880; 84443; 84484; 85025; 93005; 96365; 96375; J1940; J2270; J2405; J2543; J3370; J3490; J7040; U0003; U0005; 99285-25; G0378